=== PATIENT | male | born 1990 | race African-American/Black ===

== ENCOUNTER 2018-03-04 13:40 | Emergency (ER) | payer SELFPAY ==
[~2018-03-04] VITALS: Ht 177.8 cm; Wt 66.0 kg
[2018-03-04 13:49] VITALS: BP 120/71
== END 2018-03-04 17:05 | disposition left against medical advice (07) ==
LOC: ER 13:40
DX: R07.89 Other chest pain (principal); R10.13 Epigastric pain
CPT/HCPCS: 71045; 93005; 99284